=== PATIENT | male | born 1965 | race Caucasian/White ===

== ENCOUNTER 2023-08-03 09:38 | Emergency (ER) | payer OTHER, SELFPAY ==
[2023-08-03 09:40] VITALS: BP 131/79
[2023-08-03 09:55] VITALS: BMI 25.5
[2023-08-03 10:00] VITALS: BP 134/76
[2023-08-03] MEDS: NSS 1000 IV (10:06)
[2023-08-03] MEDS: TORADOL 15 MG IV (10:07)
--- NOTE | 2023-08-03 10:11 | ED.GENMED ---
History of Present Illness
General
Chief Complaint: Flank Pain
Source: patient
Exam Limitations: none
Time Seen by Provider: 08/03/23 09:45
Nursing documentation reviewed up to this point in time: agreed with
Travel History
Have you had any contact with someone who has COVID-19?: No
Do you have any symptoms of coronavirus? Fever > 100 degrees, chills, cough, shortness of breath, sore throat, loss of taste or smell, muscle aches, or headache?: No
History of Present Illness
History of Present Illness:
58-year-old male with no significant chronic medical issues who presents to the emergency room for evaluation of flank pain. Patient reports onset this morning rather suddenly�he says he felt some slight dizziness and chills and then developed left
flank pain radiating into his groin. He also says there is some radiation towards his left lower abdomen. He says he has mild associated nausea. He denies any recent fevers. He has not had any dysuria, hematuria, change in frequency. He denies
any change in his bowel movements. He says he has had similar symptoms with kidney stones in the past most recently a few months ago. He says he is a lifetime non-smoker.
Past History
Past History
ED Past Medical History: Other (Kidney stones) and Other (OA)
ED Past Surgical History: Orthopedic
Social History
Tobacco: Non-smoker
Drug: None
Personal:
Living: with family
Employment: Employed
Family History
Family History: Other
Review of Systems
Review of Systems
All Other Systems: ROS reviewed and negative except as documented in HPI and ROS
Constitutional: Reports chills; Denies fever
Respiratory: Denies cough or trouble breathing
Cardiac: Denies chest pain or palpitations
ABD/GI: Reports abdominal pain and nausea; Denies vomiting, diarrhea or constipated
: Reports flank pain; Denies dysuria, frequency or bleeding
Musculoskeletal: Denies neck pain
Neurological: Denies headache, weakness or numbness
Phy Exam
Physical Exam
Physical Exam:
General: Awake, alert, oriented x3; no acute distress
Head: Normocephalic, atraumatic
Eyes: Conjunctiva normal, EOMI
Throat: Airway intact, handling secretions
Neck: Trachea midline, supple without meningismus
Lungs: Clear to auscultation bilaterally, no wheezing, rales, rhonchi
Heart: Regular rate and rhythm, no murmurs, gallops, or rubs
Abd: Soft, non distended, mildly tender left lower quadrant
Back: No CVA tenderness
Neuro: Cranial nerves grossly intact, speech fluid
Skin: no rash
Extremities: No edema in extremities, equal pulses in all extremities
Scores
Heart Failure Risk
Heart Failure Risk Score: Not Applicable
Heart Score for Chest Pain Patients
STEMI patient?: Not applicable
Withdrawal Assessment of Alcohol
Withdrawal Assessment Completed?: Not applicable
Course
Orders/Labs/Results
Orders:
Orders
08/03/23 09:45
Ketorolac [Toradol] 15 mg IV NOW STA
08/03/23 09:46
CT Abd/pel Without Iv Or Oral Urgent
Comment:
Reason For Exam: left flank pain
0.9% Sodium Chloride 1000 ml [Nss] 1,000 ml IV BOLUS
08/03/23 10:08
Complete Blood Count/With Diff Urgent
Comprehensive Metabolic Panel Urgent
Urinalysis Reflex To Culture Urgent
Date Specimen was Collected: 08/03/23
Time Specimen was Collected: 09:56
Urine Microscopic Reflex Cult Urgent
Abnormal Lab Results
08/03/23
10:08
RBC 4.69 L 10^6/uL
(4.70-6.10)
MCH 31.8 H pg
(27.0-31.0)
Absolute Lymphs (auto) 1.1 L 10^3/uL
(1.2-3.4)
Neutrophils % 76.0 H %
(42.2-75.2)
Lymphocytes % 16.1 L %
(20.5-51.1)
BUN 24 H mg/dl
(9-20)
Glucose 116 H mg/dl
(70-99)
Urine Ketones 1+ A
(Negative)
Ur Occult Blood Reflex 4+ A
(Negative)
Urine RBC 26-30 A /HPF
(0-2)
Urine Bacteria (Reflex) Few A
(Negative)
08/03/23 10:08
08/03/23 10:08
Vital Signs
Initial and Last Documented VS:
Initial Vital Signs
Temp Pulse Resp BP Pulse Ox
36.5 C 68 16 131/79 99
08/03/23 09:40 08/03/23 09:40 08/03/23 09:40 08/03/23 09:40 08/03/23 09:40
Last Documented Vital Signs
Temp Pulse Resp BP Pulse Ox
36.5 C 78 16 125/77 99
08/03/23 09:40 08/03/23 11:35 08/03/23 11:35 08/03/23 11:35 08/03/23 11:35
MDM/Problems Addressed
Differential Diagnosis Includes:
Nephrolithiasis, pyelonephritis, diverticulitis, AAA somewhat less likely non-smoker with no aneurysm on prior imaging
MDM/Problems Addressed:
58-year-old male presents for evaluation of left flank pain rating to his left lower abdomen and groin similar to prior kidney stones. Vital signs here are all within normal limits. Physical exam as above. Plan placed IV check labs including CBC
and CMP will send urinalysis. Will check CT of the abdomen pelvis. Will treat pain with Toradol provide some IV fluids. Monitor closely reassess after the above.
CT shows 2 mm obstructive stone at the left UVJ with only mild hydronephrosis. CBC shows no leukocytosis, CMP shows acceptable renal function. Urinalysis negative for infection. Patient's pain is well-controlled here. Reasonable candidate for
trial of passage. Patient already has prescription for Flomax at home which he will continue to take. Advised to drink plenty of fluids. Will prescribe oxycodone as needed for breakthrough pain but advised to take NSAIDs and Tylenol for mild
pain. He feels very comfortable with this plan. Spoke about return precautions all questions answered.
*Radiology
Radiology exam reviewed: radiology read reviewed
*Pulse Oximetry
Patient hypoxic: no
*Critical Care Note
Total Time (30-74mins, 75-104mins- exclusive of procedures): Not Applicable
Data Reviewed
Review of Other/Old Records Reveals: Records and Radiology Studies
Source: patient and records
ED Attending Note
-
Portions of this chart may have been created with voice recognition software.� Occasional wrong word or��sound alike� substitutions may have occurred due to the inherent limitations of voice recognition software.
Discharge Plan
Departure
Patient Disposition: Home (Routine Discharge)
Date of Disposition: 08/03/23
Time of Disposition: 12:22
Patient with high blood pressure during this ER visit?: No
Discharge Problem:
Nephrolithiasis
Instructions: Kidney Stones (DC)
Prescriptions:
New
oxycodone 5 mg tablet
5 mg PO TID PRN (Reason: Pain) Qty: 10 0RF
No Action
Claritin-D 24 Hour Tab Sa Tablet
10 mg PO DAILY
naproxen sodium [Aleve] 220 MG tablet
220 mg PO BID PRN (Reason: pain)
omeprazole magnesium [Prilosec OTC] 20 MG tablet,delayed release (DR/EC)
20 mg PO DAILY
oxycodone-acetaminophen [Percocet] 5-325 mg Tablet
1 tab PO Q6HPRN PRN (Reason: pain) Qty: 15 0RF
tamsulosin [Flomax] 0.4 mg Capsule
0.4 mg PO DAILY Qty: 7 0RF
ondansetron 4 mg Tablet,Disintegrating
4 mg PO TIDPRN PRN (Reason: nausea/vomiting) Qty: 12 0RF
Referrals:
Janak Hawkins MD [Family Provider] - Follow up in 1 week
Activity Restrictions/Additional Instructions:
Thank you for visiting the Emergency Department at [facility].
1. Please schedule a follow up appointment as directed. Call first thing tomorrow morning to make an appointment.
2. If indicated, please take your medications as instructed and indicated on discharge paperwork.
3. If any of your symptoms do not improve, or persist, or become more severe within 6-12 hours, please return to the emergency department for further care.
4. Please return to the emergency department if you develop a headache, neck pain/stiffness, fever greater than 100.4F, chest pain, shortness of breath, persistent nausea, vomiting, slurred speech, difficulty walking, numbness/tingling, weakness,
signs of infection or any other symptoms that are worrisome to you.
Please call [phone] if you have any questions.
Interventions
Interventions:
*Risk Screen - Suicide Last Done: 08/03/23 09:55
*General Assessment Last Done: 08/03/23 09:55
*Neglect/Abuse Screening Last Done: 08/03/23 09:55
ED- Fall Risk Assessment Last Done: 08/03/23 09:55
*ED COVID-19 Vaccine History Last Done: 08/03/23 09:40
JI-Hgsbug-Ohzmqelydq Assessment Last Done: 08/03/23 09:55
ED-Male Genitourinary Assessment Last Done: 08/03/23 09:55
[2023-08-03 10:29] LABS: Urine Albumin Trace (Neg - Trace); Urine Bilirubin Negative (Negative); Urine Character Clear (Clear); Urine Color Yellow; Urine Glucose Negative (Negative); Urine Ketone 1+ (Negative); Urine Leukocyte Negative (Negative); Urine Nitrite Negative (Negative); Urine Occult Blood 4+ (Negative); Urine Specific Gravity 1.025 (<1.030); Urine Urobilinogen Negative (Neg - 1+)
[2023-08-03 10:45] LABS: ALT (SGPT) 24 U/L (0-50); AST (SGOT) 31 U/L (17-59); Albumin 4.4 g/dl (3.5-5.0); Alkaline Phosphatase 98 U/L (38-126); Blood Urea Nitrogen 24 mg/dl (9-20); Calcium 9.3 mg/dl (8.4-10.2); Carbon Dioxide 27 mmol/L (22-30); Chloride 107 mmol/L (98-107); Estimated Creatinine Clearance 69 ml/min; Glucose 116 mg/dl (70-99); Potassium 4.4 mmol/L (3.5-5.1); Sodium 139 mmol/L (135-145); Total Bilirubin 1.3 mg/dl (0.2-1.3); Total Protein 7.1 g/dl (6.3-8.2); eGFR > 60.00
[2023-08-03 10:46] LABS: % Basophils 0.4 % (0-2); % Eosinophils 0.6 % (0-6); % Immature Granulocytes 0.1 % (0-0.5); % Lymphocytes 16.1 % (20.5-51.1); % Monocytes 6.8 % (1.7-9.3); Absolute Lymphocytes 1.1 10^3/uL (1.2-3.4); Absolute Monocytes 0.5 10^3/uL (0.1-0.6); Absolute Neutrophils 5.3 10^3/uL (1.4-6.5); Hematocrit 42.6 % (39.0-52.0); Hemoglobin 14.9 g/dL (13.0-18.0); Mean Corpuscular Hgb 31.8 pg (27.0-31.0); Mean Corpuscular Volume 90.8 fL (80.0-94.0); Mean Platelet Volume 9.4 fL (7.4-10.4); Nucleated Red Blood Cells % 0 % (-); Platelet Count 244 10^3/uL (130-400); Red Blood Cell Count 4.69 10^6/uL (4.70-6.10); Red Cell Dist. Width 12.2 % (11.5-14.5)
[2023-08-03 10:56] LABS: Urine Bacteria Few (Negative); Urine Mucus Moderate; Urine Red Blood Cell 26-30 /HPF (0-2)
[2023-08-03 10:57] LABS: Urine White Cell 0-2 /HPF (0-5)
[2023-08-03 11:35] VITALS: BP 125/77
[2023-08-03 12:28] VITALS: BP 130/84
== END 2023-08-03 12:29 | disposition home or self-care (01) ==
LOC: EMR 09:38
PROVIDERS: EMERGENCY PHYSICIAN Emergency Medicine; FAMILY PHYSICIAN Internal Medicine
DX: N13.2 Hydronephrosis with renal and ureteral calculous obstruction (principal); R42 Dizziness and giddiness; M19.90 Unspecified osteoarthritis, unspecified site; Z87.442 Personal history of urinary calculi
CPT/HCPCS: 99284; 96374; 96361; 74176; 80053; 81003; 81015; 85025

== ENCOUNTER → 2023-12-11 08:53 | Outpatient (REF) | payer OTHER, SELFPAY | LOC: RAD 08:53 | PROVIDERS: ATTENDING PHYSICIAN Internal Medicine | DX: R13.19 Other dysphagia (principal) | CPT/HCPCS: 74221 ==

== ENCOUNTER → 2023-12-25 07:07 | Outpatient (REF) | payer OTHER, SELFPAY | LOC: RCS 07:07 | PROVIDERS: ATTENDING PHYSICIAN Orthopaedic Surgery Hand Surgery; FAMILY PHYSICIAN Internal Medicine | DX: Z01.818 Encounter for other preprocedural examination (principal) | CPT/HCPCS: 93005 ==

== ENCOUNTER 2024-01-29 18:12 | Emergency (ER) | payer OTHER, SELFPAY ==
[2024-01-29 18:13] VITALS: BP 135/91
[2024-01-29 18:37] VITALS: BMI 26.3
--- NOTE | 2024-01-29 18:39 | ED.GENMED ---
History of Present Illness
General
Chief Complaint: Post Operative Problem(s)
Source: patient, records and physician
Time Seen by Provider: 01/29/24 18:29
History of Present Illness
History of Present Illness:
58-year-old male status post left peroneal nerve entrapment procedure done on December 30 and had been recovering well until earlier this week when he started noticed some redness to the affected area and went to the office on , started on
cephalexin but did not notice any improvement and today felt that while the redness did not seem to be much worse he noticed increased swelling to the entirety of the left lower leg from the knee down. Patient sent pictures to the orthopedic office
and was recommended to come to the ER for further evaluation with concern for DVT versus cellulitis versus septic joint. Patient states he also had a mild headache the last 2 to 3 days and to Tylenol for this yesterday. He also notes that he took
a COVID test at home which was negative. Notes he has had low-grade fevers around 99.6-99.8 the last 3 days as well. Patient denies chest pain, shortness of breath, cough, exertional dyspnea, pleurisy or any other concerns at this time.
Past History
Past History
ED Past Medical History: Other (Kidney stones) and Other (OA)
ED Past Surgical History: Orthopedic
Social History
Tobacco: Non-smoker
Alcohol: Occasional
Drug: None
Personal:
Living: with family
Employment: Employed
Family History
Family History: Other
Review of Systems
Review of Systems
All Other Systems: ROS reviewed and negative except as documented in HPI and ROS
Phy Exam
Physical Exam
Physical Exam:
GENERAL: Alert , in no apparent distress
EYE: conjunctiva clear
NECK: Supple
ENT: o/p clr, mmm.
CARDIAC: Regular rate and rhythm
LUNGS: Clear breath sounds bilaterally, no acute respiratory distress, no wheezes/rales/rhonchi
NEUROLOGICAL: Alert and oriented
SKIN: Warm and dry, surgical wound to the left lateral knee is mildly erythematous, measures approximately 2-1/2 to 3 cm in size, no dehiscence and no drainage. There is no streaking or lymphangitis
MUSCULOSKELETAL: well perfused. Edema to the diffuse left lower leg past the knee extending towards the foot. Palpable pedal and tibial pulses. Cap refill less than 2 seconds and sensation is grossly intact to light touch
PSYCH: Normal and appropriate interaction.
Scores
Heart Failure Risk
Heart Failure Risk Score: Not Applicable
Heart Score for Chest Pain Patients
STEMI patient?: Not applicable
Withdrawal Assessment of Alcohol
Withdrawal Assessment Completed?: Not applicable
Course
Orders/Labs/Results
Orders:
Orders
01/29/24 18:36
US Periph Venous LOWER Ext LT Urgent
Comment:
Reason For Exam: recent surgery, edema
01/29/24 18:43
Basic Metabolic Panel Urgent
CRP [C-Reactive Protein] Urgent
Complete Blood Count/With Diff Urgent
ESR [Erythrocyte Sed Rate] Urgent
Lactic Acid Q4H
Comment: CANCEL 2nd LACTIC ACID IF 1st LACTIC ACID IS LESS THAN 2
Abnormal Lab Results
01/29/24
18:43
RBC 4.22 L 10^6/uL
(4.70-6.10)
Hct 37.6 L %
(39.0-52.0)
MCH 31.3 H pg
(27.0-31.0)
Absolute Neuts (auto) 7.2 H 10^3/uL
(1.4-6.5)
Absolute Monos (auto) 1.2 H 10^3/uL
(0.1-0.6)
Lymphocytes % 17.9 L %
(20.5-51.1)
Monocytes % 11.8 H %
(1.7-9.3)
ESR 32 H mm/hour
(0-20)
BUN 25 H mg/dl
(9-20)
Glucose 102 H mg/dl
(70-99)
Lactic Acid 0.6 L mmol/L
(0.7-2.0)
C-Reactive Protein 211.00 H mg/L
(0.0-10.00)
01/29/24 18:43
01/29/24 18:43
Vital Signs
Initial and Last Documented VS:
Initial Vital Signs
Temp Pulse Resp BP Pulse Ox
99.8 F 96 18 135/91 96
01/29/24 18:13 01/29/24 18:13 01/29/24 18:13 01/29/24 18:13 01/29/24 18:13
Last Documented Vital Signs
Temp Pulse Resp BP Pulse Ox
100.1 F 89 18 144/72 99
01/29/24 19:45 01/29/24 19:45 01/29/24 20:00 01/29/24 19:45 01/29/24 20:00
MDM/Problems Addressed
Differential Diagnosis Includes:
DVT, left knee cellulitis, septic joint, abscess
MDM/Problems Addressed:
58-year-old male presenting to the emergency department for evaluation at request of his orthopedic provider for left lower leg edema and some erythema overlying his incision site from December 30. Started Keflex yesterday. 2 to 3 days of low-grade
fevers but never passed 100. Patient range of motion's of the left knee without much difficulty making septic joint a little less likely. Will check labs and perform ultrasound to rule out DVT. Will discuss with Ortho following labs and imaging.
*Radiology
Radiology exam reviewed: radiology read reviewed
*Pulse Oximetry
Patient hypoxic: no
*Critical Care Note
Total Time (30-74mins, 75-104mins- exclusive of procedures): Not Applicable
Data Reviewed
Review of Other/Old Records Reveals: Labs and Records
Patient Management
Discussion with other providers: Training And Development Rep
Escalation/DeEscalation of care consider admission/obs:
Patient's ultrasound is negative for DVT. Labs reveal no leukocytosis but he does have elevated inflammatory markers. I discussed this with the patient's orthopedic surgeon who states that he would feel comfortable with either the patient going
home and continuing to observe with oral antibiotics (they switched the antibiotic to Augmentin and already sent this to patient's pharmacy) or if the patient felt more comfortable could stay for IV antibiotics and monitoring. I had an extensive
conversation with the patient and about both options and patient ultimately preferred to go home. He was advised on return precautions for fevers, worsening pain, purulence or any other concerns that he may have. Patient has an arranged
follow-up with orthopedics this coming Thursday. Stable for discharge home and aware of return precautions. Orthopedics updated on plan and are comfortable with disposition planning
ED Attending Note
-
Portions of this chart may have been created with voice recognition software.� Occasional wrong word or��sound alike� substitutions may have occurred due to the inherent limitations of voice recognition software.
Discharge Plan
Departure
Patient Disposition: Home (Routine Discharge)
Date of Disposition: 01/29/24
Time of Disposition: 20:06
Patient with high blood pressure during this ER visit?: Yes
Discharge Problem:
Cellulitis of left knee
Instructions: Cellulitis (Skin Infection), Adult ED
Prescriptions:
No Action
Claritin-D 24 Hour Tab Sa Tablet
10 mg PO DAILY
naproxen sodium [Aleve] 220 MG tablet
220 mg PO BID PRN (Reason: pain)
omeprazole magnesium [Prilosec OTC] 20 MG tablet,delayed release (DR/EC)
20 mg PO DAILY
Referrals:
NONE,* [Family Provider] -
Interventions
Interventions:
*Risk Screen - Suicide Last Done: 01/29/24 18:45
*General Assessment Last Done: 01/29/24 18:13
*Neglect/Abuse Screening Last Done: 01/29/24 18:45
ED- Fall Risk Assessment Last Done: 01/29/24 20:12
*ED COVID-19 Vaccine History Last Done: 01/29/24 18:13
*Nursing Disposition Last Done: 01/29/24 20:12
ED-Skin Assessment Last Done: 01/29/24 18:45
Discharge Date and Time
Discharge Date/Time: 01/29/24 20:15
Print Language: KAZAKH
[2024-01-29 18:50] LABS: % Basophils 0.3 % (0-2); % Eosinophils 1.4 % (0-6); % Immature Granulocytes 0.4 % (0-0.5); % Lymphocytes 17.9 % (20.5-51.1); % Monocytes 11.8 % (1.7-9.3); % Neutrophils 68.2 % (42.2-75.2); Absolute Eosinophils 0.2 10^3/uL (0-0.7); Absolute Lymphocytes 1.9 10^3/uL (1.2-3.4); Absolute Monocytes 1.2 10^3/uL (0.1-0.6); Absolute Neutrophils 7.2 10^3/uL (1.4-6.5); Hematocrit 37.6 % (39.0-52.0); Hemoglobin 13.2 g/dL (13.0-18.0); Mean Corp Hgb Conc. 35.1 g/dL (33.0-37.0); Mean Corpuscular Hgb 31.3 pg (27.0-31.0); Mean Corpuscular Volume 89.1 fL (80.0-94.0); Mean Platelet Volume 8.7 fL (7.4-10.4); Nucleated Red Blood Cells % 0 % (-); Platelet Count 230 10^3/uL (130-400); Red Blood Cell Count 4.22 10^6/uL (4.70-6.10); Red Cell Dist. Width 12.7 % (11.5-14.5); White Blood Cell Count 10.5 10^3/uL (4.8-10.8)
[2024-01-29 19:02] LABS: Erythrocyte Sed Rate 32 mm/hour (0-20)
[2024-01-29 19:06] LABS: Lactic Acid 0.6 mmol/L (0.7-2.0)
[2024-01-29 19:07] LABS: Blood Urea Nitrogen 25 mg/dl (9-20); Calcium 9.7 mg/dl (8.4-10.2); Carbon Dioxide 26 mmol/L (22-30); Chloride 105 mmol/L (98-107); Estimated Creatinine Clearance 76 ml/min; Glucose 102 mg/dl (70-99); Potassium 4.5 mmol/L (3.5-5.1); Sodium 139 mmol/L (135-145); eGFR > 60.00
[2024-01-29 19:45] VITALS: BP 144/72
== END 2024-01-29 20:15 | disposition home or self-care (01) ==
LOC: EMR 18:12
PROVIDERS: Physician Assistant Medical; EMERGENCY PHYSICIAN Emergency Medicine
DX: L03.116 Cellulitis of left lower limb (principal); R60.0 Localized edema; R50.9 Fever, unspecified; R51.9 Headache, unspecified; R03.0 Elevated blood-pressure reading, without diagnosis of hypertension; M19.90 Unspecified osteoarthritis, unspecified site; Z98.890 Other specified postprocedural states; Z87.442 Personal history of urinary calculi
CPT/HCPCS: 99284; 80048; 83605; 85025; 85652; 86140; 93971

== ENCOUNTER → 2024-12-07 07:12 | Outpatient (REF) | payer OTHER, SELFPAY | LOC: HWRCS 07:12 | PROVIDERS: ATTENDING PHYSICIAN Internal Medicine | DX: E78.5 Hyperlipidemia, unspecified (principal); Z82.49 Family history of ischemic heart disease and other diseases of the circulatory system | CPT/HCPCS: 93306 ==

== ENCOUNTER 2024-12-31 16:43 | Emergency (ER) | payer OTHER, SELFPAY ==
[2024-12-31 16:48] VITALS: BP 146/84
[2024-12-31 17:15] VITALS: BMI 27.1
[2024-12-31] MEDS: TORADOL 30 MG IV (17:16)
[2024-12-31] MEDS: NSS 1000 IV (17:16)
[2024-12-31 17:40] LABS: % Basophils 0.5 % (0-2); % Eosinophils 2.6 % (0-6); % Immature Granulocytes 0.2 % (0-0.5); % Lymphocytes 29.1 % (20.5-51.1); % Monocytes 8.8 % (1.7-9.3); % Neutrophils 58.8 % (42.2-75.2); Absolute Eosinophils 0.2 10^3/uL (0-0.7); Absolute Lymphocytes 1.7 10^3/uL (1.2-3.4); Absolute Monocytes 0.5 10^3/uL (0.1-0.6); Absolute Neutrophils 3.4 10^3/uL (1.4-6.5); Hematocrit 37.7 % (39.0-52.0); Hemoglobin 13.3 g/dL (13.0-18.0); Mean Corp Hgb Conc. 35.3 g/dL (33.0-37.0); Mean Corpuscular Volume 87.9 fL (80.0-94.0); Nucleated Red Blood Cells % 0 % (-); Platelet Count 244 10^3/uL (130-400); Red Blood Cell Count 4.29 10^6/uL (4.70-6.10); Red Cell Dist. Width 12.4 % (11.5-14.5); White Blood Cell Count 5.8 10^3/uL (4.8-10.8)
[2024-12-31 17:42] LABS: Urine Albumin 1+ (Neg - Trace); Urine Bilirubin Negative (Negative); Urine Character Clear (Clear); Urine Color Yellow; Urine Glucose Negative (Negative); Urine Ketone Negative (Negative); Urine Leukocyte Negative (Negative); Urine Nitrite Negative (Negative); Urine Occult Blood 4+ (Negative); Urine Specific Gravity 1.025 (<1.030); Urine Urobilinogen Negative (Neg - 1+)
[2024-12-31 17:49] LABS: Urine Bacteria Few (Negative); Urine Squamous Cell 0-2 /LPF (Few)
[2024-12-31 17:57] LABS: ALT (SGPT) 18 U/L (0-50); AST (SGOT) 26 U/L (17-59); Albumin 4.2 g/dl (3.5-5.0); Alkaline Phosphatase 90 U/L (38-126); Blood Urea Nitrogen 25 mg/dl (9-20); Calcium 9.2 mg/dl (8.4-10.2); Carbon Dioxide 22 mmol/L (22-30); Chloride 111 mmol/L (98-107); Estimated Creatinine Clearance 62 ml/min; Glucose 132 mg/dl (70-99); Sodium 140 mmol/L (135-145); Total Bilirubin 1.1 mg/dl (0.2-1.3); Total Protein 6.6 g/dl (6.3-8.2); eGFR > 60.00
--- NOTE | 2024-12-31 18:00 | ED.GENMED ---
History of Present Illness
General
Chief Complaint: Flank Pain
Source: patient
Time Seen by Provider: 12/31/24 16:58
History of Present Illness
History of Present Illness:
Note:
CHIEF COMPLAINT(S)
Flank pain
HISTORY OF PRESENT ILLNESS
The patient is a 59-year-old male presenting with right flank pain that began yesterday. The patient describes the severity of pain as 5 or 6 out of 10. The pain fluctuates and is described as non-remitting. The patient reports associated symptoms
of nausea when the pain is severe and has noted hematuria in the past but not today. The patient denies other symptoms including altered appetite or exacerbation of pain due to food. The patient took tamsulosin , acetaminophen , and naproxen for
pain management. The patient states a history of similar episodes approximately three to four times in the past.
CHRONIC MEDICAL CONDITIONS SIGNIFICANTLY AFFECTING CARE
Chronic conditions affecting care: history of kidney stones.
ALLERGIES
The patient denies any known allergies.
PAST SURGICAL HISTORY
The patient mentions prior abdominal surgery.
SOCIAL HISTORY
The patient reports consuming one beer last night.
Past History
Past History
ED Past Medical History: Other (Kidney stones) and Other (OA)
ED Past Surgical History: Orthopedic
Social History
Tobacco: Non-smoker
Alcohol: Occasional
Drug: None
Personal:
Living: with family
Employment: Employed
Family History
Family History: Other
Review of Systems
Review of Systems
All Other Systems: ROS reviewed and negative except as documented in HPI and ROS
Phy Exam
Physical Exam
Physical Exam:
GENERAL: Alert , in no apparent distress but does appear mildly uncomfortable
EYE: clear conjunctiva b/l
HEAD: NCAT
ENT: o/p clr, mmm.
CARDIAC: Regular rate and rhythm .
LUNGS: Clear breath sounds bilaterally, no acute respiratory distress, no wheezes/rales/rhonchi
ABDOMEN: Soft, without focal tenderness, no r/g, mild right CVA ttp, negative olmstead's sign
NEUROLOGICAL: Alert and oriented
SKIN: Warm and dry, skin intact.
MUSCULOSKELETAL: No edema, well perfused.
PSYCH: Normal and appropriate interaction.
Scores
Heart Failure Risk
Heart Failure Risk Score: Not Applicable
Heart Score for Chest Pain Patients
STEMI patient?: Not applicable
Withdrawal Assessment of Alcohol
Withdrawal Assessment Completed?: Not applicable
Course
Orders/Labs/Results
Orders:
Orders
12/31/24 17:09
CT Abd/pel Without Iv Or Oral Urgent
Comment:
Reason For Exam: right flank pain, hx stones
0.9% Sodium Chloride 1000 ml [Nss] 1,000 ml IV BOLUS
Ketorolac [Toradol] 30 mg IV NOW STA
12/31/24 17:17
Complete Blood Count/With Diff Urgent
Comprehensive Metabolic Panel Urgent
Urinalysis Reflex To Culture Urgent
Date Specimen was Collected: 12/31/24
Time Specimen was Collected: 16:55
Urine Microscopic Reflex Cult Urgent
12/31/24 18:00
Oxycodone/Acetaminophen [Percocet 5/325] 1 tablet PO NOW STA
Abnormal Lab Results
12/31/24
17:17
RBC 4.29 L 10^6/uL
(4.70-6.10)
Hct 37.7 L %
(39.0-52.0)
Chloride 111 H mmol/L
(98-107)
BUN 25 H mg/dl
(9-20)
Glucose 132 H mg/dl
(70-99)
Ur Occult Blood Reflex 4+ A
(Negative)
Urine RBC 11-15 A /HPF
(0-2)
Urine Bacteria (Reflex) Few A
(Negative)
Urine Albumin (Reflex) 1+ A
(Neg - Trace)
12/31/24 17:17
12/31/24 17:17
Vital Signs
Initial and Last Documented VS:
Initial Vital Signs
Temp Pulse Resp BP Pulse Ox
98.0 F 74 20 146/84 96
12/31/24 16:48 12/31/24 16:48 12/31/24 16:48 12/31/24 16:48 12/31/24 16:48
Last Documented Vital Signs
Temp Pulse Resp BP Pulse Ox
98.0 F 74 20 146/84 96
12/31/24 16:48 12/31/24 16:48 12/31/24 16:48 12/31/24 16:48 12/31/24 18:00
MDM/Problems Addressed
Differential Diagnosis Includes:
The Differential Diagnosis includes, in no particular order and is not limited to:
1. Nephrolithiasis (Kidney stones)
2. Pyelonephritis
3. Gallbladder disease (cholecystitis, cholelithiasis)
4. Hepatic pathology
5. Pancreatitis
6. Renal colic
7. Urinary tract infection
8. Peptic ulcer disease
9. Gastroesophageal reflux disease
10. Musculoskeletal pain
MDM/Problems Addressed:
Administer intravenous analgesics and fluids to alleviate the patients pain. Conduct a CT scan and obtain blood work, including liver function tests. If liver function tests indicate abnormalities or the CT imaging is inconclusive, consider an
ultrasound of the liver and gallbladder to rule out gallbladder pathology. Prescribe a new script for tamsulosin. The patient will be monitored for the development of nausea, and medication will be provided if needed.
*Radiology
Radiology exam reviewed: radiology read reviewed
*Pulse Oximetry
SaO2: 96
Oxygen Mode of Delivery: Room air
*Critical Care Note
Total Time (30-74mins, 75-104mins- exclusive of procedures): Not Applicable
Patient Management
Escalation/DeEscalation of care consider admission/obs:
DISPOSITION
The patient was discharged home with pain management instructions and follow-up information for urology.
EMERGENCY TREATMENTS ADMINISTERED
Administered intravenous fluids which corrected the slightly elevated BUN from diminished oral intake. Additionally, treated with percocet for returning pain prior to discharge.
PLAN
Discharge the patient with a prescription for pain management and provide information for follow-up with urology. The patient was informed about return precautions to the emergency department.
INDEPENDENT REVIEW OF LABS AND INTERPRETATION OF TESTS
My independent review of the labs showed a slightly elevated BUN, corrected by rehydration. CT scan shows acute right hydroureteronephrosis secondary to a 4mm obstructing calculus in the right proximal ureter. Incidental findings also discussed with
patient and he was provided with printout of CT report
MEDICATION RECONCILIATION
An additional dose of percocet was given for pain management prior to discharge. Sent home with Rx for percocet and flomax
ED Attending Note
-
Portions of this chart may have been created with voice recognition software.� Occasional wrong word or��sound alike� substitutions may have occurred due to the inherent limitations of voice recognition software.
Discharge Plan
Departure
Patient Disposition: Home (Routine Discharge)
Date of Disposition: 12/31/24
Time of Disposition: 18:03
Patient with high blood pressure during this ER visit?: No
Discharge Problem:
Ureterolithiasis, Colic, ureteral
Instructions: Kidney Stones (DC)
Prescriptions:
New
oxycodone-acetaminophen [Percocet] 5-325 mg tablet
1 tab PO Q6HPRN PRN (Reason: pain) Qty: 8 0RF
tamsulosin [Flomax] 0.4 mg capsule
0.4 mg PO DAILY Qty: 8 0RF
No Action
Claritin-D 24 Hour Tab Sa Tablet
10 mg PO DAILY
naproxen sodium [Aleve] 220 MG tablet
220 mg PO BID PRN (Reason: pain)
omeprazole magnesium [Prilosec OTC] 20 MG tablet,delayed release (DR/EC)
20 mg PO DAILY
Referrals:
Kevin Guzman MD [Active, Urology]
Janak Hawkins MD [Family Provider, Internal Medicine]
Interventions
Interventions:
*Risk Screen - Suicide Last Done: 12/31/24 18:35
*General Assessment Last Done: 12/31/24 18:35
*Neglect/Abuse Screening Last Done: 12/31/24 18:35
*ED- Fall Risk Assessment Last Done: 12/31/24 18:35
*ED COVID-19 Vaccine History Last Done: 12/31/24 18:35
*Nursing Disposition Last Done: 12/31/24 18:36
NG-Dukctl-Znwnkraicy Assessment Last Done: 12/31/24 18:35
ED-Male Genitourinary Assessment Last Done: 12/31/24 18:35
Discharge Date and Time
Discharge Date/Time: 12/31/24 18:36
Print Language: TELUGU
[2024-12-31] MEDS: PERCOCET 5/325 1 TABLET PO (18:27)
== END 2024-12-31 18:36 | disposition home or self-care (01) ==
LOC: EMR 16:43
PROVIDERS: EMERGENCY PHYSICIAN Emergency Medicine; FAMILY PHYSICIAN Internal Medicine
DX: N13.2 Hydronephrosis with renal and ureteral calculous obstruction (principal); Z87.442 Personal history of urinary calculi
CPT/HCPCS: 99285; 96374; 96361; 74176; 80053; 81003; 81015; 85025

== ENCOUNTER → 2025-07-09 12:29 | Outpatient (REF) | payer OTHER, SELFPAY | LOC: PAVMRI 12:29 | PROVIDERS: ATTENDING PHYSICIAN Orthopaedic Surgery; FAMILY PHYSICIAN Internal Medicine | DX: M25.562 Pain in left knee (principal); M54.16 Radiculopathy, lumbar region | CPT/HCPCS: 72148; 73721 ==